=== PATIENT | female | born 1985 | race Caucasian/White ===

== ENCOUNTER 2018-01-17 18:32 | Emergency (ER) | payer BC ==
[2018-01-17] MEDS ORDERED: Acetaminophen/HYDROcodone 325-5 MG Tab ONE (18:55)
--- NOTE | 2018-01-17 19:06 | EDM.PDOC ---
ED HPI GENERAL MEDICAL PROBLEM - General Chief Complaint: General Stated Complaint: injured right arm Time Seen by Provider: 01/17/18 18:45 Source of Information: Reports: Patient History Limitations: Reports: No Limitations - History of Present Illness INITIAL COMMENTS - FREE TEXT/NARRATIVE: According to patient she was coming down the stairs with her flip-flop and the flip-flop slipped and she fell forward and landed on her right shoulder. She has sharp pain in the right upper shoulder. Cannot move her arm due to pain.Rates pain at 8/10. Did have some tingling in the right arm and hand when it happened, but now can feel her right arm and hand well. Pt does c/o pain in the right side of the nape of the neck. No other trauma. Onset: Today Onset Date: 01/17/18 Onset Time: 16:00 Duration: Constant Location: Reports: Upper Extremity, Right Quality: Reports: Ache Severity: Severe Improves with: Reports: None Worsens with: Reports: None Associated Symptoms: Denies: Confusion, Chest Pain, Cough, Diaphoresis, Fever/ Chills, Nausea/Vomiting, Rash, Seizure, Shortness of Breath, Syncope, Weakness - Related Data Allergies Allergy/AdvReac Type Severity Reaction Status Date / Time No Known Allergies Allergy Verified 01/17/18 18:50 Home Meds: Home Meds Citalopram Hydrobromide [Citalopram HBr] 1 tab PO BEDTIME 05/18/16 [History] 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 Denies: Joint Swelling Skin: Denies: Pruritis, Rash ED EXAM, GENERAL - Physical Exam Exam: See Below Exam Limited By: No Limitations General Appearance: Alert, WD/WN, Moderate Distress Eye Exam: Bilateral Eye: EOMI, PERRL Ears: Normal External Exam, Normal Canal, Hearing Grossly Normal, Normal TMs Ear Exam: Bilateral Ear: Auricle Normal, Canal Normal, TM normal Nose: Normal Inspection, Normal Mucosa, No Blood Throat/Mouth: Normal Inspection, Normal Lips, Normal Teeth, Normal Gums, Normal Oropharynx, Normal Voice, No Airway Compromise Head: Atraumatic, Normocephalic Neck: Normal Inspection, Supple, Full Range of Motion, Tender Lateral (over the right paraspinal muscle and the trapezius muscle.) Respiratory/Chest: No Respiratory Distress, Lungs Clear, Normal Breath Sounds, No Accessory Muscle Use, Chest Non-Tender Cardiovascular: Normal Peripheral Pulses, Regular Rate, Rhythm, No Edema, No Gallop, No JVD, No Murmur, No Rub Extremities: Other (right shoulder and neck region: there is fulness seen in the right calvicular region. Pt has very limited ROm of the right arm due to pain.Tender over the tip of the shoulder and the distal clavicle.No tenderness over the arm or humerus.) Course - Vital Signs Text/Narrative:: She did receive toradol 60mg IM for pain. Right clavicular X-ray appears normal. Shoulder joint appears normal. Did get AC joint Xray, whic is normal, there is no AC joint separation seen. Arm sling applied. Advised to alternate motrin 800mg with vicodin every 4 hrs for pain control. pain will gradually improve over 1 wk. Advised cold compresses for 24 hrs and than heat and cold. Followup in clinic is not better in 1 wk. - Orders/Labs/Meds Orders: Active Orders 24 hr Category Date Time Status AC Joint w Weight Bi [CR] Stat Exams 01/17/18 19:24 Ordered Clavicle Rt [CR] Stat Exams 01/17/18 18:59 Ordered Meds: Medications Discontinued Medications Generic Name Dose Route Start Last Admin Trade Name Freq PRN Reason Stop Dose Admin Ketorolac Tromethamine 60 mg 01/17/18 19:05 01/17/18 19:10 Toradol IM 01/17/18 19:06 60 mg ONETIME ONE Administration Departure - Departure Time of Disposition: 19:55 Disposition: Home, Self-Care 01 Condition: Fair Clinical Impression: Right shoulder strain - Discharge Information Instructions: Acetaminophen; Hydrocodone tablets or capsules, Muscle Strain Forms: ED Department Discharge Additional Instructions: Wear sling for 1 week. Pain should improve after 1 week. Alternate Vicodin and Ibuprofen every 4 hours. Take Vicodin 1 tab at 11:00pm. Use cold compress for the first 24hrs. Apply for 10-15 min 3 times a day. No heavy lifting. Follow up as needed. - Problem List & Annotations (1) Right shoulder strain SNOMED Code(s): 788827597 Code(s): S46.911A - STRAIN UNSP MUSC/FASC/TEND AT SHLDR/UP ARM, RIGHT ARM, INIT Status: Acute - Problem List Review Problem List Initiated/Reviewed/Updated: Yes - My Orders Last 24 Hours: My Active Orders 01/17/18 18:59 Clavicle Rt [CR] Stat 01/17/18 19:24 AC Joint w Weight Bi [CR] Stat - Assessment/Plan Last 24 Hours: My Active Orders 01/17/18 18:59 Clavicle Rt [CR] Stat 01/17/18 19:24 AC Joint w Weight Bi [CR] Stat Assessment:: right shoulder strain Plan: She did receive toradol 60mg IM for pain. Right clavicular X-ray appears normal. Shoulder joint appears normal. Did get AC joint Xray, whic is normal, there is no AC joint separation seen. Arm sling applied. Advised to alternate motrin 800mg with vicodin every 4 hrs for pain control. pain will gradually improve over 1 wk. Advised cold compresses for 24 hrs and than heat and cold. Followup in clinic is not better in 1 wk.
[2018-01-17] MEDS: Ketorolac 60 MG/2 ML SDV IM ONE (19:10)
--- NOTE | 2018-01-18 08:31 | CR ---
DATE OF SERVICE: 01/17/18 CLINICAL DATA: fall and injury to right shoulder RIGHT CLAVICLE: Normal. [id number] [facility]
--- NOTE | 2018-01-18 08:33 | CR ---
DATE OF SERVICE: 01/17/18 CLINICAL DATA: right shoulder pain BILATERAL AC JOINTS: Normal. No evidence of AC separation. [id number] [facility]
== END 2018-01-17 19:57 | disposition home or self-care (01) ==
LOC: LB.ED 18:32
DX: S46.911A Strain of unspecified muscle, fascia and tendon at shoulder and upper arm level, right arm, initial encounter (principal); W19.XXXA Unspecified fall, initial encounter
CPT/HCPCS: 73000-RT; 73050-50; 96372; 99283; 99283-25; A9270-GY; J1885

== ENCOUNTER 2020-09-11 12:07 | Emergency (ER) | payer BC ==
--- NOTE | 2020-09-11 12:54 | EDM.PDOC ---
ED HPI GENERAL MEDICAL PROBLEM - General Chief Complaint: General Stated Complaint: RACING HEART / SOB Time Seen by Provider: 09/11/20 12:20 Source of Information: Reports: Patient History Limitations: Reports: No Limitations - History of Present Illness INITIAL COMMENTS - FREE TEXT/NARRATIVE: presented to the ER with a c/o palpitations. Reports this has been going on for 6 months, but progressively getting worse, as more frequencies. She recently underwent a russo monitor - but no results back yet. no CP and no SOB. no dizziness or syncope. she is a [employer] and has been working for the last 4 days. Reports that she has issues with sleeping, but no major stresses recently. She also reports that her BP has been elevated lately > 140 SBP for the last 2 months. No N/v. No h/o CAD.. No blood test recently. Today's palpitation occurred after she was trying to go to bed. She felt skipped hear beating and decided to come to the ER for evaluation. 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 Musculoskeletal History: Reports: Osteoarthritis Other Musculoskeletal History: Right shoulder Psychiatric History: Reports: Depression - Past Surgical History HEENT Surgical History: Reports: Tonsillectomy Musculoskeletal Surgical History: Reports: Other (See Below) Other Musculoskeletal Surgeries/Procedures:: Right clavicle fracture Social & Family History - Family History Family Medical History: No Pertinent Family History - Caffeine Use Caffeine Use: Reports: Soda ED ROS GENERAL - Review of Systems Review Of Systems: See Below Constitutional: Reports: No Symptoms HEENT: Reports: No Symptoms Respiratory: Reports: No Symptoms Cardiovascular: Reports: Blood Pressure Problem, Edema, Palpitations. Denies: Chest Pain Endocrine: Reports: Fatigue GI/Abdominal: Reports: No Symptoms : Reports: No Symptoms Neurological: Reports: No Symptoms Psychiatric: Reports: No Symptoms ED EXAM, GENERAL - Physical Exam Exam: See Below Exam Limited By: No Limitations General Appearance: Alert, No Apparent Distress Respiratory/Chest: No Respiratory Distress Cardiovascular: Normal Peripheral Pulses, Regular Rate, Rhythm, Other (b/l pitting edema +1) GI/Abdominal: Normal Bowel Sounds, Non-Tender Extremities: Normal Inspection, Normal Range of Motion, Pedal Edema Neurological: Alert, Oriented, Normal Cognition, No Motor/Sensory Deficits Psychiatric: Normal Affect, Normal Mood Course - Vital Signs Last Recorded V/S: Last Vital Signs Temp 36.2 C 09/11/20 12:34 Pulse 74 09/11/20 12:34 Resp 18 09/11/20 12:34 BP 164/97 H 09/11/20 12:34 Pulse Ox 100 09/11/20 12:34 - Orders/Labs/Meds Orders: Active Orders 24 hr Category Date Time Status EKG Documentation Completion [RC] ASDIRECTED Care 09/11/20 12:42 Active CXR [Chest 2V] [CR] Stat Exams 09/11/20 12:48 Taken Labs: Laboratory Tests 09/11/20 09/11/20 09/11/20 Range/Units 12:53 12:53 12:53 WBC 10.7 (4.0-11.0) K/uL RBC 4.54 (3.80-5.80) M/uL Hgb 14.1 (11.5-16.5) g/dL Hct 41.3 (37.0-47.0) % MCV 91 (76-96) fL MCH 31.1 (27.0-32.0) pg MCHC 34.1 (31.0-35.0) g/dL RDW 12.3 (11.0-16.0) % Plt Count 353 (150-500) K/uL MPV 9.4 (6.0-10.0) fL Neut % (Auto) 61.3 (45.0-70.0) % Lymph % (Auto) 30.6 (20.0-40.0) % [place] % (Auto) 5.2 (3.0-10.0) % Eos % (Auto) 2.5 (1.0-5.0) % Baso % (Auto) 0.4 (0.0-0.5) % Neut # (Auto) 6.56 (2.00-7.50) K/uL Lymph # (Auto) 3.27 (1.50-4.00) K/uL [place] # (Auto) 0.56 (0.20-0.80) K/uL Eos # (Auto) 0.27 (0.04-0.40) K/uL Baso # (Auto) 0.04 (0.02-0.10) K/uL D-Dimer, Quantitative < 100 (0-400) ng/mL Sodium 139 (136-145) mmol/L Potassium 4.0 (3.5-5.1) mmol/L Chloride 103 (98-107) mmol/L Carbon Dioxide 26.4 (21.0-32.0) mmol/L Anion Gap 13.6 (5.0-15.0) mmol/L BUN 14 (8-26) mg/dL Creatinine 0.99 (0.55-1.02) mg/dL Est Cr Clr Drug Dosing 87.40 mL/min Estimated GFR (MDRD) > 60 (>60) MLS/MIN BUN/Creatinine Ratio 14.1 (6-25) Glucose 167 H (74-100) mg/dL Calcium 8.3 L (8.5-10.1) mg/dL Phosphorus 2.7 (2.5-4.9) mg/dL Magnesium 2.3 (1.8-2.4) mg/dL B-Natriuretic Peptide (0-125) pg/mL TSH, Ultra Sensitive 2.304 (0.358-3.740) uIU/mL 09/11/20 Range/Units 12:53 WBC (4.0-11.0) K/uL RBC (3.80-5.80) M/uL Hgb (11.5-16.5) g/dL Hct (37.0-47.0) % MCV (76-96) fL MCH (27.0-32.0) pg MCHC (31.0-35.0) g/dL RDW (11.0-16.0) % Plt Count (150-500) K/uL MPV (6.0-10.0) fL Neut % (Auto) (45.0-70.0) % Lymph % (Auto) (20.0-40.0) % [place] % (Auto) (3.0-10.0) % Eos % (Auto) (1.0-5.0) % Baso % (Auto) (0.0-0.5) % Neut # (Auto) (2.00-7.50) K/uL Lymph # (Auto) (1.50-4.00) K/uL [place] # (Auto) (0.20-0.80) K/uL Eos # (Auto) (0.04-0.40) K/uL Baso # (Auto) (0.02-0.10) K/uL D-Dimer, Quantitative (0-400) ng/mL Sodium (136-145) mmol/L Potassium (3.5-5.1) mmol/L Chloride (98-107) mmol/L Carbon Dioxide (21.0-32.0) mmol/L Anion Gap (5.0-15.0) mmol/L BUN (8-26) mg/dL Creatinine (0.55-1.02) mg/dL Est Cr Clr Drug Dosing mL/min Estimated GFR (MDRD) (>60) MLS/MIN BUN/Creatinine Ratio (6-25) Glucose (74-100) mg/dL Calcium (8.5-10.1) mg/dL Phosphorus (2.5-4.9) mg/dL Magnesium (1.8-2.4) mg/dL B-Natriuretic Peptide 50 (0-125) pg/mL TSH, Ultra Sensitive (0.358-3.740) uIU/mL Meds: Medications Discontinued Medications Generic Name Dose Route Start Last Admin Trade Name Lacey PRN Reason Stop Dose Admin Propranolol HCl 20 mg 09/11/20 12:43 09/11/20 12:59 Inderal PO 09/11/20 12:44 20 mg NOW STA Administration - Re-Assessments/Exams Free Text/Narrative Re-Assessment/Exam: was connected to a monitor EKG - showed NSR labs were ordered including CBC, CMP, TSH, Trop and Ddimer. CXR- Propranolol PO 20mg was given - 09/11/20 13:56 patient reports that her symptoms has significantly improved after the Inderal PO. BP has also improved - down to 118/82 ( was 152/91 on arrival ) labs WNL - normal TSH and BMP will d/c home on a trial of short course of inderal 10mg PO x10 days Departure - Departure Time of Disposition: 13:58 Disposition: Home, Self-Care 01 Condition: Good Clinical Impression: Palpitations Hypertension Qualifiers: Hypertension type: unspecified secondary hypertension Qualified Code(s): I15.9 - Secondary hypertension, unspecified; I15 - Secondary hypertension - Discharge Information *PRESCRIPTION DRUG MONITORING PROGRAM REVIEWED*: Not Applicable *COPY OF PRESCRIPTION DRUG MONITORING REPORT IN PATIENT LORI: Not Applicable Prescriptions: Propranolol [Inderal] 10 mg PO DAILY #10 tablet Instructions: Palpitations, [id number] Referrals: Nasim Valente MD [Primary Care Provider] - Forms: ED Department Discharge Additional Instructions: - follow up with your PCP in 1-2 weeks - start taking the new prescription - once daily - discuss with your PCP if the new medications helped or not - increase fluids intake - recommend to get enough rest and avoid caffeinated drinks Sepsis Event Note (ED) - Evaluation Sepsis Screening Result: No Definite Risk - Focused Exam Vital Signs: Vital Signs Temp Pulse Resp BP Pulse Ox 09/11/20 12:34 36.2 C 74 18 164/97 H 100 - Problem List & Annotations (1) Hypertension SNOMED Code(s): 83093879 Code(s): I10 - ESSENTIAL (PRIMARY) HYPERTENSION Status: Acute Priority: Medium Current Visit: Yes Qualifiers: Hypertension type: unspecified secondary hypertension Qualified Code(s): I15.9 - Secondary hypertension, unspecified; I15 - Secondary hypertension (2) Palpitations SNOMED Code(s): 05612258 Code(s): R00.2 - PALPITATIONS Status: Acute Priority: Medium Current Visit: Yes - Problem List Review Problem List Initiated/Reviewed/Updated: Yes - My Orders Last 24 Hours: My Active Orders 09/11/20 12:42 EKG Documentation Completion [RC] ASDIRECTED 09/11/20 12:48 CXR [Chest 2V] [CR] Stat - Assessment/Plan Last 24 Hours: My Active Orders 09/11/20 12:42 EKG Documentation Completion [RC] ASDIRECTED 09/11/20 12:48 CXR [Chest 2V] [CR] Stat Plan: - follow up with your PCP in 1-2 weeks - start taking the new prescription - once daily - discuss with your PCP if the new medications helped or not - increase fluids intake - recommend to get enough rest and avoid caffeinated drinks
[2020-09-11] MEDS: Propranolol 20 MG Tab PO STA (12:59)
--- NOTE | 2020-09-11 15:07 | CR ---
DATE OF SERVICE: 09/11/20 CLINICAL DATA: palpitation PA AND LATERAL CHEST: No priors. The heart size is normal. The lungs are clear. No pneumothorax. No pleural effusions. There is degenerative disc disease at multiple levels in the mid thoracic spine. No evidence of acute intrathoracic disease. [id number] [facility]
== END 2020-09-11 14:09 | disposition home or self-care (01) ==
LOC: LB.ED 12:07
DX: I15.9 Secondary hypertension, unspecified (principal); R00.2 Palpitations
CPT/HCPCS: 36415; 71046; 80048; 83735; 83880; 84100; 84443; 85025; 85379; 93005; 99285-25; A9270-GY